=== PATIENT | female | born 2000 | race Hispanic/Latino ===

== ENCOUNTER 2022-06-13 21:37 | Day surgery (SDC) | payer OTHER ==
[2022-06-13 21:54] VITALS: BMI 45.8
[2022-06-13] MEDS ORDERED: hydrALAZINE 20 MG/ML VIAL SLOW IVP PRN (22:06)
== END 2022-06-14 00:20 | disposition home or self-care (01) ==
LOC: CSHLD/OP 21:37
PROVIDERS: ATTEND Family Medicine
DX: O36.8130 Decreased fetal movements, third trimester, not applicable or unspecified (principal); Z3A.39 39 weeks gestation of pregnancy; Z90.49 Acquired absence of other specified parts of digestive tract
CPT/HCPCS: 76819; 99282